=== PATIENT | female | born 2000 | race Caucasian/White ===

== ENCOUNTER 2020-12-07 15:51 | Outpatient (CLI) | payer BC, SELFPAY ==
--- NOTE | ~2020-12-07 | XR_ITS ---
EXAMINATION: XR shoulder LT min 2V DATE: 12/07/2020 16:32 INDICATION: Left shoulder pain. TECHNIQUE: 4 views of left shoulder were obtained. COMPARISON: None. FINDINGS: Bone alignment is normal. No fracture. Joint spaces are well maintained. IMPRESSION: 1. Normal left shoulder. Reviewed, dictated and finalized at location A. IMPRESSION: 1. Normal left shoulder.
--- NOTE | ~2020-12-07 | XR_ITS ---
EXAMINATION: XR AC joint BI DATE: 12/07/2020 16:32 INDICATION: Left shoulder pain. Fall. TECHNIQUE: 4 views of the bilateral acromioclavicular joints without and with weights were obtained. COMPARISON: None. FINDINGS: Bone alignment is normal. No fracture. There is a small subchondral cyst in distal right cl avicle. Joint spaces are otherwise normal. IMPRESSION: 1. Mild osteoarthritis of right acromioclavicular joint. Reviewed, dictated and finalized at location A.
== END 2020-12-07 15:52 | disposition home or self-care (01) ==
LOC: CHSIMG 15:56
PROVIDERS: PCP Nurse Practitioner Psychiatric/Mental Health; Visit Provider Physician Assistant
DX: M25.512 Pain in left shoulder (principal)
CPT/HCPCS: 73030; 73050